=== PATIENT | female | born 1980 | race Two or more races ===

== ENCOUNTER 2023-10-29 17:52 | Emergency (ER) | payer MEDICAID ==
[~2023-10-29] VITALS: Ht 160 cm; Wt 88.7 kg
[2023-10-29 18:13] VITALS: BP 167/101; PULSE 112; RESP 16; O2SAT 97
[2023-10-29] MEDS: LIDOCAINE 1% HCL (LOCAL ANESTH.) INJ 20ML MDV ID ONE (20:36)
[2023-10-29] MEDS ORDERED: HYDR-4798 PO (20:58)
[2023-10-29] MEDS ORDERED: DOXY-286 PO (20:58)
[2023-10-29] MEDS: KETOROLAC TROMETH 60MG/2ML VIAL IM ONE (21:07)
== END 2023-10-29 22:16 | disposition home or self-care (01) ==
LOC: ER 17:54
DX: N75.1 Abscess of Bartholin's gland (principal); Z41.8 Encounter for other procedures for purposes other than remedying health state; Z88.0 Allergy status to penicillin
CPT/HCPCS: 56420; 96372; 99284; J1885; J2001